=== PATIENT | male | born 1985 | race African-American/Black ===

== ENCOUNTER 2021-07-09 14:09 | Emergency (ER) | payer OTHER ==
[2021-07-09 14:19] VITALS: BMI 32.5
[2021-07-09] MEDS ORDERED: IBUPROFEN 600 MG TABLET (FP) PO ONE ×2 (14:41→15:31)
[2021-07-09] MEDS ORDERED: CASIRIVIMAB/IMDEVIMAB 10 ML in SODIUM CHLORIDE 100 ML IVPB ONE (15:14)
[2021-07-09] MEDS ORDERED: SODIUM CHLORIDE 1,000 ML IV STA (15:16)
[2021-07-09 16:52] LABS: HEMATOCRIT 45.1 % (35.4-49); HEMOGLOBIN 15.1 GM/dL (11.7-16.9); MCHC 33.5 g/dl (32.0-35.9); MEAN CELL VOLUME 92.7 fl (80-96); MEAN PLT VOLUME 8.4 fl (7.5-11.1); PLATELET COUNT 257 10^3/uL (134-434); RBC 4.87 M/mm3 (4.00-5.60); RDW 13.7 % (11.9-15.9); WHITE BLOOD COUNT 3.6 K/mm3 (4.0-10.0)
[2021-07-09 17:16] LABS: CALCIUM 8.7 mg/dL (8.5-10.1)
[2021-07-09 17:17] LABS: ALBUMIN 4.1 g/dl (3.4-5.0); BLOOD UREA NITROGEN 11.2 mg/dL (7-18)
[2021-07-09 17:20] LABS: CREATININE 1.2 mg/dL (0.55-1.3)
[2021-07-09 17:21] LABS: BILIRUBIN,TOTAL 0.2 mg/dL (0.2-1); TOT PROT 8.3 g/dl (6.4-8.2)
[2021-07-09] MEDS ORDERED: DEXAMETHASONE LIQUID 0.5 MG/5 ML PO ONE (17:57)
[2021-07-09] MEDS ORDERED: DEXAMETHASONE SOD PHOSPHATE 10 MG/1 ML VIAL IVPUSH ONE (18:00)
[2021-07-09] MEDS ORDERED: DEXAMETHASONE SOD PHOSPHATE 10 MG/1 ML VIAL ONE ×2 (18:00→18:22)
[2021-07-09] MEDS ORDERED: ACETAMINOPHEN INJECTION 100 ML IVPB ONE (18:01)
[2021-07-09 18:27] VITALS: BP 108/62; PULSE 77; TEMP 98.6
== END 2021-07-09 18:37 | disposition home or self-care (01) ==
LOC: JCOVINFU 14:09 → JER 14:09 → JCOVINFU 18:37
PROC: 3E033GC Introduction of Other Therapeutic Substance into Peripheral Vein, Percutaneous Approach (ICD-10-PCS; principal; 2021-07-09)
DX: U07.1 COVID-19 (principal)
CPT/HCPCS: 36415; 71046-TC-FY; 80053; 85027; 99284-25; J1100; M0240; Q0240

== ENCOUNTER 2023-06-29 01:17 | Emergency (ER) | payer OTHER ==
[2023-06-29 01:36] VITALS: BP 108/70; PULSE 59; RESP 20; TEMP 98.2; BMI 34.2
== END 2023-06-29 02:15 | disposition home or self-care (01) ==
LOC: JER 01:17
DX: Z00.00 Encounter for general adult medical examination without abnormal findings (principal)
CPT/HCPCS: 99281-25

== ENCOUNTER 2023-10-12 17:29 | Emergency (ER) | payer OTHER ==
[2023-10-12 18:24] VITALS: BP 122/77; PULSE 18; RESP 18; TEMP 98.2; BMI 33.9
[2023-10-12 21:35] LABS: COCAINE, UR NEGATIVE (NEGATIVE); OPIATES, URI NEGATIVE (NEGATIVE); URINE BARBITURATES NEGATIVE (NEGATIVE)
[2023-10-12 21:36] LABS: METHADONE, UR NEGATIVE (NEGATIVE); PHENCYCLIDINE,URINE NEGATIVE (NEGATIVE)
[2023-10-12 21:40] LABS: URINE BENZODIAZEPINES NEGATIVE (NEGATIVE)
[2023-10-12 21:45] LABS: URINE AMPHETAMINES NEGATIVE (NEGATIVE)
== END 2023-10-12 18:44 | disposition home or self-care (01) ==
LOC: FER 17:29
DX: F19.121 Other psychoactive substance abuse with intoxication delirium (principal)
CPT/HCPCS: 80307; 99283-25